=== PATIENT | male | born 1995 | race Caucasian/White ===

== ENCOUNTER 2022-04-18 06:01 | Emergency (ER) | payer SELFPAY | END 2022-04-18 08:32 | disposition home or self-care (01) | LOC: JP.ED 06:01 | DX: S82.425A Nondisplaced transverse fracture of shaft of left fibula, initial encounter for closed fracture (principal); W18.39XA Other fall on same level, initial encounter | CPT/HCPCS: 73590-26-LT; 73590-LT; 99283 ==